=== PATIENT | male | born 1950 | race Caucasian/White ===

== ENCOUNTER 2021-08-05 09:33 | Inpatient (IN) | payer OTHER ==
[2021-08-05 10:40] LABS: BASO % 0.1 % (0-2.0); EOS % 0.2 % (0-4.5); HEMATOCRIT 42.5 % (35.4-49); HEMOGLOBIN 14.3 GM/dL (11.7-16.9); LYMPH % 8.8 % (8-40); MCHC 33.5 g/dl (32.0-35.9); MEAN CELL VOLUME 80.5 fl (80-96); MEAN PLT VOLUME 7.6 fl (7.5-11.1); MONO % 5.2 % (3.8-10.2); NEUT % 85.7 % (42.8-82.8); PLATELET COUNT 272 10^3/uL (134-434); RBC 5.28 M/mm3 (4.00-5.60); RDW 16.3 % (11.9-15.9); WHITE BLOOD COUNT 9.6 K/mm3 (4.0-10.0)
[2021-08-05 11:03] LABS: CHLORIDE 97 mmol/L (98-107); SODIUM 136 mmol/L (136-145)
[2021-08-05 11:04] LABS: MAGNESIUM 1.9 mg/dL (1.8-2.4)
[2021-08-05] MEDS: SODIUM CHLORIDE 1,000 ML IV SCH (11:04)
[2021-08-05 11:06] LABS: ALBUMIN 3.1 g/dl (3.4-5.0); CALCIUM 8.4 mg/dL (8.5-10.1); CO2 30 mmol/L (21-32); GLUCOSE,RANDOM 101 mg/dL (74-106)
[2021-08-05 11:07] LABS: BLOOD UREA NITROGEN 36.4 mg/dL (7-18)
[2021-08-05 11:08] LABS: PHOSPHOROUS 3.3 mg/dL (2.5-4.9)
[2021-08-05 11:09] LABS: SGPT/ALT 10 U/L (13-61)
[2021-08-05 11:10] LABS: CHOLESTEROL 118 mg/dL (50-200); CREATININE 2.2 mg/dL (0.55-1.3); SGOT/AST 18 U/L (15-37)
[2021-08-05 11:11] LABS: BILIRUBIN,TOTAL 1.4 mg/dL (0.2-1); LDL CHOLESTEROL (ONLY SJRH) 57 mg/dL (5-100); TOT PROT 6.9 g/dl (6.4-8.2); TRIGLYCERIDES 112 mg/dL (0-150)
[2021-08-05 11:12] LABS: ALK PHOS 131 U/L (45-117); HDL CHOLESTEROL 46 mg/dL (40-60)
[2021-08-05 11:18] LABS: ANION GAP 9 MMOL/L (8-16)
[2021-08-05] MEDS ORDERED: POTASSIUM CHLORIDE TABS 20 MEQ TABLET.ER (FP) PO ONE ×4 (11:25→19:38)
[2021-08-05] MEDS ORDERED: SODIUM CHLORIDE 0.9% 500 ML INFUS.BAG IV ONE (11:25)
[2021-08-05] MEDS: KCL 10 MEQ IVPB 10 MEQ/100 ML INFUS.BAG IVPB SCH ×3 (12:25→15:00)
[2021-08-05] MEDS ORDERED: KCL 10 MEQ IVPB 10 MEQ/100 ML INFUS.BAG IVPB ONE ×2 (12:28→14:36)
[2021-08-05 12:39] LABS: EPI CELLS 1 /uL (0-25.1); HYALINE CASTS 1 /uL (0-3.1); URINE APPEARANCE CLEAR; URINE BACTERIA 0 /uL (0-1359); URINE BILIRUBIN NEGATIVE (NEGATIVE); URINE COLOR YELLOW; URINE GLUCOSE (UA) NEGATIVE (NEGATIVE); URINE KETONE NEGATIVE (NEGATIVE); URINE LEUK ESTERASE NEGATIVE (NEGATIVE); URINE NITRITE NEGATIVE (NEGATIVE); URINE PROTEIN NEGATIVE (NEGATIVE); URINE RBC 71 /uL (0-23.9); URINE UROBILINOGEN 0.2 mg/dL (0.2-1.0); URINE WBC 5 /uL (0-25.8)
[2021-08-05] MEDS ORDERED: DEXTROSE 50%-WATER - 25 GM/50 ML VIAL IVPUSH ONE (16:36)
[2021-08-05] MEDS ORDERED: DEXTROSE 50%-WATER - 25 GM/50 ML VIAL ONE (16:37)
[2021-08-05] MEDS ORDERED: DEXTROSE 10%-WATER - 1,000 ML IV SCH (17:00)
[2021-08-05 18:40] LABS: CALCIUM 7.8 mg/dL (8.5-10.1)
[2021-08-05 18:41] LABS: ALBUMIN 2.6 g/dl (3.4-5.0); BLOOD UREA NITROGEN 34.8 mg/dL (7-18)
[2021-08-05 18:44] LABS: CREATININE 1.9 mg/dL (0.55-1.3)
[2021-08-05 18:45] LABS: BILIRUBIN,TOTAL 1.3 mg/dL (0.2-1); TOT PROT 5.7 g/dl (6.4-8.2)
[2021-08-05] MEDS: HEPARIN NA (PORCINE) 5,000 UNITS/ML 1ML VIAL SQ SCH (22:47)
[2021-08-05] MEDS: NYSTATIN 100,000 UNIT/GM TOPICAL CREAM 15 GM TUBE TP SCH (22:47)
[2021-08-05] MEDS: ATORVASTATIN CA 10 MG TABLET (FP) PO SCH (22:47)
[2021-08-06] MEDS: HEPARIN NA (PORCINE) 5,000 UNITS/ML 1ML VIAL SQ SCH ×2 (09:10→21:23)
[2021-08-06 09:16] LABS: BASO % 0.3 % (0-2.0); EOS % 0.9 % (0-4.5); HEMATOCRIT 36.5 % (35.4-49); HEMOGLOBIN 11.9 GM/dL (11.7-16.9); LYMPH % 13.2 % (8-40); MCH 26.6 pg (25.7-33.7); MCHC 32.6 g/dl (32.0-35.9); MEAN CELL VOLUME 81.5 fl (80-96); MEAN PLT VOLUME 8.3 fl (7.5-11.1); MONO % 9.8 % (3.8-10.2); NEUT % 75.8 % (42.8-82.8); PLATELET COUNT 192 10^3/uL (134-434); RBC 4.48 M/mm3 (4.00-5.60); RDW 16.4 % (11.9-15.9); WHITE BLOOD COUNT 5.5 K/mm3 (4.0-10.0)
[2021-08-06 09:58] LABS: CALCIUM 7.7 mg/dL (8.5-10.1)
[2021-08-06 09:59] LABS: ALBUMIN 2.1 g/dl (3.4-5.0); BLOOD UREA NITROGEN 32.1 mg/dL (7-18); MAGNESIUM 1.6 mg/dL (1.8-2.4)
[2021-08-06 10:01] LABS: CREATININE 1.7 mg/dL (0.55-1.3); URIC ACID 7.9 mg/dL (2.6-7.2)
[2021-08-06 10:02] LABS: TOT PROT 5.2 g/dl (6.4-8.2)
[2021-08-06 10:03] LABS: BILIRUBIN,TOTAL 0.9 mg/dL (0.2-1)
[2021-08-06] MEDS ORDERED: SODIUM CHLORIDE 0.45%/POT 20 MEQ/1,000 ML INFUS.BAG IV SCH (12:15)
[2021-08-06] MEDS ORDERED: POTASSIUM CHLORIDE TABS 20 MEQ TABLET.ER (FP) PO ONE (13:00)
[2021-08-06] MEDS: SODIUM CHLORIDE 1,000 ML IV SCH (13:02)
[2021-08-06] MEDS: NYSTATIN 100,000 UNIT/GM TOPICAL CREAM 15 GM TUBE TP SCH ×2 (14:08→21:24)
[2021-08-06] MEDS: ATORVASTATIN CA 10 MG TABLET (FP) PO SCH (21:23)
[2021-08-07] MEDS: TAMSULOSIN HCL 0.4 MG CAP PO SCH (08:22)
[2021-08-07 08:37] LABS: BASO % 0.3 % (0-2.0); EOS % 2.8 % (0-4.5); HEMATOCRIT 34.8 % (35.4-49); HEMOGLOBIN 11.5 GM/dL (11.7-16.9); LYMPH % 19.9 % (8-40); MCH 26.6 pg (25.7-33.7); MCHC 33.1 g/dl (32.0-35.9); MEAN CELL VOLUME 80.3 fl (80-96); MEAN PLT VOLUME 7.9 fl (7.5-11.1); MONO % 8.1 % (3.8-10.2); NEUT % 68.9 % (42.8-82.8); PLATELET COUNT 186 10^3/uL (134-434); RBC 4.34 M/mm3 (4.00-5.60); RDW 16.1 % (11.9-15.9); WHITE BLOOD COUNT 5.2 K/mm3 (4.0-10.0)
[2021-08-07 08:55] LABS: CHLORIDE 99 mmol/L (98-107); SODIUM 138 mmol/L (136-145)
[2021-08-07 09:04] LABS: ALBUMIN 2.3 g/dl (3.4-5.0); BLOOD UREA NITROGEN 22.2 mg/dL (7-18); PHOSPHOROUS 2.2 mg/dL (2.5-4.9)
[2021-08-07 09:05] LABS: GLUCOSE,RANDOM 107 mg/dL (74-106)
[2021-08-07 09:06] LABS: BILIRUBIN,TOTAL 0.9 mg/dL (0.2-1); TOT PROT 5.3 g/dl (6.4-8.2)
[2021-08-07 09:07] LABS: ALK PHOS 89 U/L (45-117); CO2 32 mmol/L (21-32); CREATININE 1.1 mg/dL (0.55-1.3)
[2021-08-07 09:08] LABS: SGOT/AST 18 U/L (15-37)
[2021-08-07 09:09] LABS: MAGNESIUM 1.4 mg/dL (1.8-2.4)
[2021-08-07] MEDS: HEPARIN NA (PORCINE) 5,000 UNITS/ML 1ML VIAL SQ SCH ×2 (09:10→21:26)
[2021-08-07] MEDS: NYSTATIN 100,000 UNIT/GM TOPICAL CREAM 15 GM TUBE TP SCH ×2 (09:10→21:26)
[2021-08-07 09:13] LABS: SGPT/ALT 12 U/L (13-61)
[2021-08-07 09:17] LABS: ANION GAP 7 MMOL/L (8-16)
[2021-08-07] MEDS ORDERED: POTASSIUM CHLORIDE TABS 10 MEQ TABLET.ER (FP) PO ONE (10:15)
[2021-08-07] MEDS: MAGNESIUM SULF 50% (8.12 MEQ/2 ML-1 GM VIAL) IVPB SCH ×2 (10:20→13:50)
[2021-08-07] MEDS: KCL 10 MEQ IVPB 10 MEQ/100 ML INFUS.BAG IVPB SCH ×2 (11:42→13:38)
[2021-08-07] MEDS ORDERED: MAGNESIUM SULF 50% (8.12 MEQ/2 ML-1 GM VIAL) IVPB SCH (13:45)
[2021-08-07] MEDS: ATORVASTATIN CA 10 MG TABLET (FP) PO SCH (21:26)
[2021-08-08 06:51] LABS: BASO % 0.3 % (0-2.0); HEMATOCRIT 35.2 % (35.4-49); HEMOGLOBIN 11.4 GM/dL (11.7-16.9); MCH 26.4 pg (25.7-33.7); MCHC 32.4 g/dl (32.0-35.9); MEAN CELL VOLUME 81.3 fl (80-96); MEAN PLT VOLUME 7.7 fl (7.5-11.1); MONO % 8.8 % (3.8-10.2); NEUT % 64.9 % (42.8-82.8); PLATELET COUNT 207 10^3/uL (134-434); RBC 4.33 M/mm3 (4.00-5.60); RDW 16.3 % (11.9-15.9); WHITE BLOOD COUNT 5.8 K/mm3 (4.0-10.0)
[2021-08-08 07:24] LABS: MAGNESIUM 1.7 mg/dL (1.8-2.4)
[2021-08-08 07:28] LABS: PHOSPHOROUS 2.6 mg/dL (2.5-4.9)
[2021-08-08] MEDS: TAMSULOSIN HCL 0.4 MG CAP PO SCH (09:01)
[2021-08-08] MEDS: HEPARIN NA (PORCINE) 5,000 UNITS/ML 1ML VIAL SQ SCH ×2 (09:01→21:03)
[2021-08-08] MEDS: NYSTATIN 100,000 UNIT/GM TOPICAL CREAM 15 GM TUBE TP SCH ×2 (09:01→21:03)
[2021-08-08 14:00] VITALS: BMI 24.7
[2021-08-08] MEDS ORDERED: MAGNESIUM SULF 50% (8.12 MEQ/2 ML-1 GM VIAL) IVPB ONE (15:18)
[2021-08-08 20:29] LABS: BLOOD UREA NITROGEN 17.7 mg/dL (7-18); CALCIUM 8.1 mg/dL (8.5-10.1)
[2021-08-08] MEDS: ATORVASTATIN CA 10 MG TABLET (FP) PO SCH (21:03)
[2021-08-09] MEDS: TAMSULOSIN HCL 0.4 MG CAP PO SCH (08:51)
[2021-08-09] MEDS: HEPARIN NA (PORCINE) 5,000 UNITS/ML 1ML VIAL SQ SCH ×2 (09:00→22:12)
[2021-08-09] MEDS: MULTIVITAMINS THER W-MINERALS COMBO TABLET (FP) PO SCH (09:00)
[2021-08-09] MEDS: NYSTATIN 100,000 UNIT/GM TOPICAL CREAM 15 GM TUBE TP SCH ×2 (09:00→22:15)
[2021-08-09 09:34] LABS: BASO % 0.2 % (0-2.0); EOS % 3.3 % (0-4.5); HEMATOCRIT 33.6 % (35.4-49); HEMOGLOBIN 11.2 GM/dL (11.7-16.9); LYMPH % 18.1 % (8-40); MCH 26.8 pg (25.7-33.7); MCHC 33.3 g/dl (32.0-35.9); MEAN CELL VOLUME 80.4 fl (80-96); MEAN PLT VOLUME 7.7 fl (7.5-11.1); MONO % 9.1 % (3.8-10.2); NEUT % 69.3 % (42.8-82.8); PLATELET COUNT 195 10^3/uL (134-434); RBC 4.18 M/mm3 (4.00-5.60); RDW 16.4 % (11.9-15.9); WHITE BLOOD COUNT 5.9 K/mm3 (4.0-10.0)
[2021-08-09 10:00] LABS: CALCIUM 8.3 mg/dL (8.5-10.1)
[2021-08-09 10:01] LABS: ALBUMIN 2.4 g/dl (3.4-5.0); BLOOD UREA NITROGEN 15.9 mg/dL (7-18); MAGNESIUM 1.8 mg/dL (1.8-2.4)
[2021-08-09 10:04] LABS: PHOSPHOROUS 3.3 mg/dL (2.5-4.9)
[2021-08-09 10:06] LABS: TOT PROT 5.3 g/dl (6.4-8.2)
[2021-08-09] MEDS: ZINC SULFATE 220 MG CAPSULE (FP) PO SCH (10:41)
[2021-08-09] MEDS: ASCORBIC ACID 500 MG TABLET (FP) PO SCH (10:41)
[2021-08-09] MEDS ORDERED: POTASSIUM CHLORIDE TABS 20 MEQ TABLET.ER (FP) PO ONE (13:09)
[2021-08-09] MEDS: ATORVASTATIN CA 10 MG TABLET (FP) PO SCH (22:12)
[2021-08-10] MEDS: MULTIVITAMINS THER W-MINERALS COMBO TABLET (FP) PO SCH (09:00)
[2021-08-10] MEDS: ASCORBIC ACID 500 MG TABLET (FP) PO SCH (09:00)
[2021-08-10] MEDS: NYSTATIN 100,000 UNIT/GM TOPICAL CREAM 15 GM TUBE TP SCH ×2 (09:00→21:38)
[2021-08-10] MEDS: HEPARIN NA (PORCINE) 5,000 UNITS/ML 1ML VIAL SQ SCH ×2 (09:00→21:37)
[2021-08-10] MEDS: ZINC SULFATE 220 MG CAPSULE (FP) PO SCH (09:00)
[2021-08-10] MEDS: TAMSULOSIN HCL 0.4 MG CAP PO SCH (09:00)
[2021-08-10 09:10] LABS: ALBUMIN 2.3 g/dl (3.4-5.0); BILIRUBIN,TOTAL 0.8 mg/dL (0.2-1); BLOOD UREA NITROGEN 25.2 mg/dL (7-18); CREATININE 1.2 mg/dL (0.55-1.3); TOT PROT 5.3 g/dl (6.4-8.2)
[2021-08-10] MEDS ORDERED: TAMSULOSIN HCL 0.4 MG CAP PO SCH (14:04)
[2021-08-10] MEDS ORDERED: TAMSULOSIN HCL 0.4 MG CAP PO ONE (14:15)
[2021-08-10] MEDS: ATORVASTATIN CA 10 MG TABLET (FP) PO SCH (21:37)
[2021-08-11 07:19] LABS: BASO % 0.3 % (0-2.0); EOS % 1.8 % (0-4.5); HEMATOCRIT 33.7 % (35.4-49); HEMOGLOBIN 11.2 GM/dL (11.7-16.9); LYMPH % 18.8 % (8-40); MCHC 33.2 g/dl (32.0-35.9); MEAN CELL VOLUME 81.3 fl (80-96); MEAN PLT VOLUME 7.9 fl (7.5-11.1); MONO % 9.3 % (3.8-10.2); NEUT % 69.8 % (42.8-82.8); PLATELET COUNT 198 10^3/uL (134-434); RBC 4.14 M/mm3 (4.00-5.60); RDW 16.5 % (11.9-15.9); WHITE BLOOD COUNT 6.4 K/mm3 (4.0-10.0)
[2021-08-11 07:41] LABS: ALBUMIN 2.3 g/dl (3.4-5.0); BLOOD UREA NITROGEN 25.5 mg/dL (7-18)
[2021-08-11 07:44] LABS: CREATININE 1.1 mg/dL (0.55-1.3)
[2021-08-11 07:45] LABS: TOT PROT 5.4 g/dl (6.4-8.2)
[2021-08-11 07:46] LABS: BILIRUBIN,TOTAL 0.8 mg/dL (0.2-1)
[2021-08-11] MEDS: MULTIVITAMINS THER W-MINERALS COMBO TABLET (FP) PO SCH (11:10)
[2021-08-11] MEDS: ASCORBIC ACID 500 MG TABLET (FP) PO SCH (11:10)
[2021-08-11] MEDS: ZINC SULFATE 220 MG CAPSULE (FP) PO SCH (11:11)
[2021-08-11] MEDS: HEPARIN NA (PORCINE) 5,000 UNITS/ML 1ML VIAL SQ SCH (11:11)
[2021-08-11] MEDS: NYSTATIN 100,000 UNIT/GM TOPICAL CREAM 15 GM TUBE TP SCH (11:11)
[2021-08-11] MEDS ORDERED: POLYETHYLENE GLYCOL (HEALTHYLAX) 3350 17 GM PACKET PO SCH (14:00)
[2021-08-11 15:40] VITALS: BP 106/55; PULSE 70; TEMP 100.7
[2021-08-12 12:11] LABS: SARS-CoV-2 NAA Not Detected (Not Detected)
== END 2021-08-11 13:15 | DRG 683 ==
LOC: JER 09:33 → JERBED 11:27 → J4S 22:08 → J4W 08-10 17:32
PROVIDERS: ADMIT Family Medicine; ATTEND Family Medicine
DX: N17.9 Acute kidney failure, unspecified (principal); G45.9 Transient cerebral ischemic attack, unspecified; E11.649 Type 2 diabetes mellitus with hypoglycemia without coma; E11.22 Type 2 diabetes mellitus with diabetic chronic kidney disease; E78.5 Hyperlipidemia, unspecified; M62.81 Muscle weakness (generalized); N18.2 Chronic kidney disease, stage 2 (mild); E88.09 Other disorders of plasma-protein metabolism, not elsewhere classified; R47.81 Slurred speech; E87.6 Hypokalemia; N13.30 Unspecified hydronephrosis; I12.9 Hypertensive chronic kidney disease with stage 1 through stage 4 chronic kidney disease, or unspecified chronic kidney disease; N28.1 Cyst of kidney, acquired; N40.1 Benign prostatic hyperplasia with lower urinary tract symptoms; R31.0 Gross hematuria; R33.9 Retention of urine, unspecified; M21.372 Foot drop, left foot
CPT/HCPCS: 36415; 70450-TC; 70551-TC; 71045-TC-FY; 76775-TC; 76856-TC; 80048; 80053; 80061; 80299; 81003; 82010; 82570; 82607; 82962; 83036; 83525; 83735; 84100; 84156; 84300; 84436; 84443; 84484; 84550; 85025; 87086; 93005; 93010; 93306-TC; 93880-TC; 97162-GP; 99285-25; C9803-CS; J1644; J3480; U0003; U0005

== ENCOUNTER 2022-05-08 04:26 | Day surgery (SDC) | payer OTHER ==
[2022-05-06 11:17] VITALS: BMI 25.4
[2022-05-08] MEDS ORDERED: MIDAZOLAM HCL 2 MG/2 ML SINGLE DOSE VIAL ONE (12:28)
[2022-05-08] MEDS ORDERED: PROPOFOL 20 ML ONE (12:28)
[2022-05-08] MEDS ORDERED: SODIUM CHLORIDE 0.9% P/F 10 ML VIAL IJ ONE (12:30)
[2022-05-08] MEDS ORDERED: ceFAZolin SODIUM 1 GM VIAL ONE (12:30)
[2022-05-08] MEDS ORDERED: LIDOCAINE HCL/PF 2% SDV 5ML VIAL ONE (12:30)
[2022-05-08] MEDS ORDERED: GLYCOPYRROLATE 0.2 MG/1 ML VIAL ONE (12:30)
[2022-05-08] MEDS ORDERED: ceFAZolin SODIUM 1 GM VIAL IVPB ONE (12:45)
[2022-05-08] MEDS ORDERED: ONDANSETRON 4 MG/2 ML VIAL IVPUSH PRN (14:27)
[2022-05-08] MEDS ORDERED: PROMETHAZINE HCL 25 MG/1 ML VIAL IVPUSH PRN (14:27)
[2022-05-08] MEDS ORDERED: LACTATED RINGERS SOLUTION 1,000 ML IV SCH (14:30)
[2022-05-08 15:30] VITALS: RESP 18
[2022-05-08 15:36] VITALS: BP 104/58; PULSE 82; TEMP 97.2
== END 2022-05-08 16:04 ==
LOC: JASU-SURG 04:26
PROVIDERS: ATTEND Urology
PROC: 0T9B00Z Drainage of Bladder with Drainage Device, Open Approach (ICD-10-PCS; principal; 2022-05-08 12:00)
DX: N31.9 Neuromuscular dysfunction of bladder, unspecified (principal); N36.8 Other specified disorders of urethra; N30.90 Cystitis, unspecified without hematuria
CPT/HCPCS: 82962; 94760

== ENCOUNTER 2023-10-25 16:17 | Inpatient (IN) | payer OTHER ==
[2023-10-25 17:36] LABS: BASO % 0.3 % (0-2.0); HEMATOCRIT 38.5 % (35.4-49); HEMOGLOBIN 12.5 GM/dL (11.7-16.9); LYMPH % 13.3 % (8-40); MCH 27.1 pg (25.7-33.7); MCHC 32.6 g/dl (32.0-35.9); MEAN CELL VOLUME 83.1 fl (80-96); MEAN PLT VOLUME 7.6 fl (7.5-11.1); MONO % 10.1 % (3.8-10.2); NEUT % 75.3 % (42.8-82.8); PLATELET COUNT 329 10^3/uL (134-434); RBC 4.63 M/mm3 (4.00-5.60); WHITE BLOOD COUNT 11.4 K/mm3 (4.0-10.0)
[2023-10-25] MEDS: SODIUM CHLORIDE 1,000 ML IV STA (17:42)
[2023-10-25 18:08] LABS: LACTIC ACID 2.1 mmol/L (0.4-2.0)
[2023-10-25 18:15] LABS: ALBUMIN 2.9 g/dl (3.4-5.0); BLOOD UREA NITROGEN 20.7 mg/dL (7-18); CALCIUM 8.4 mg/dL (8.5-10.1); MAGNESIUM 1.4 mg/dL (1.8-2.4)
[2023-10-25 18:18] LABS: CREATININE 0.8 mg/dL (0.55-1.3)
[2023-10-25 18:20] LABS: BILIRUBIN,TOTAL 0.9 mg/dL (0.2-1); TOT PROT 6.7 g/dl (6.4-8.2)
[2023-10-25] MEDS ORDERED: MAGNESIUM 1GM/D5W - 1 GM/100 ML IVPB IVPB ONE (18:35)
[2023-10-25] MEDS: MAGNESIUM 1GM/D5W - 1 GM/100 ML IVPB IVPB ONE (18:50)
[2023-10-25] MEDS ORDERED: AMPICILLIN NA/SULBACTAM NA 3 GM/100 ML BAG IVPB ONE (19:39)
[2023-10-25] MEDS: AMPICILLIN NA/SULBACTAM NA 3 GM in SODIUM CHLORIDE 100 ML IVPB ONE (19:46)
[2023-10-26] MEDS ORDERED: ACETAMINOPHEN 1000 MG/100 ML BAG IVPB PRN (01:27)
[2023-10-26] MEDS ORDERED: AMPICILLIN NA/SULBACTAM NA 3 GM/100 ML BAG IVPB ONE (02:22)
[2023-10-26] MEDS: AMPICILLIN NA/SULBACTAM NA 3 GM in SODIUM CHLORIDE 100 ML IVPB SCH (02:30)
[2023-10-26] MEDS ORDERED: MAGNESIUM 1GM/D5W - 1 GM/100 ML IVPB IVPB ONE (02:37)
[2023-10-26] MEDS: MAGNESIUM 1GM/D5W - 1 GM/100 ML IVPB IVPB ONE (02:38)
[2023-10-26 04:13] VITALS: BMI 25.6
[2023-10-26] MEDS: INSULIN ASPART SLIDING SCALE (NOVOLOG) 1 VIAL SQ SCH (06:10)
[2023-10-26 09:51] LABS: BASO % 0.4 % (0-2.0); EOS % 1.1 % (0-4.5); HEMATOCRIT 37.1 % (35.4-49); HEMOGLOBIN 12.1 GM/dL (11.7-16.9); LYMPH % 16.3 % (8-40); MCH 27.1 pg (25.7-33.7); MCHC 32.5 g/dl (32.0-35.9); MEAN CELL VOLUME 83.3 fl (80-96); MONO % 10.9 % (3.8-10.2); NEUT % 71.3 % (42.8-82.8); PLATELET COUNT 285 10^3/uL (134-434); RBC 4.45 M/mm3 (4.00-5.60); RDW 15.9 % (11.9-15.9); WHITE BLOOD COUNT 9.1 K/mm3 (4.0-10.0)
[2023-10-26 09:59] LABS: POTASSIUM 3.4 mmol/L (3.5-5.1)
[2023-10-26 10:04] LABS: BLOOD UREA NITROGEN 16.5 mg/dL (7-18)
[2023-10-26 10:07] LABS: CALCIUM 8.4 mg/dL (8.5-10.1); CREATININE 0.7 mg/dL (0.55-1.3); MAGNESIUM 1.8 mg/dL (1.8-2.4); PHOSPHOROUS 2.5 mg/dL (2.5-4.9)
[2023-10-26] MEDS: AMMONIUM LACTATE 12% LOTION 225 GM BOTTLE TP SCH (10:16)
[2023-10-26] MEDS: ASCORBIC ACID 500 MG TABLET (FP) PO SCH (10:17)
[2023-10-26] MEDS: metFORMIN HCL 500 MG TABLET (FP) PO SCH (10:17)
[2023-10-26] MEDS: VANCOMYCIN/WATER FOR INJ (PEG) 1,000 MG/200 ML BAG IVPB SCH (15:49)
[2023-10-26] MEDS: ATORVASTATIN CA 10 MG TABLET (FP) PO SCH (21:36)
[2023-10-27] MEDS ORDERED: ACETAMINOPHEN 325 MG TABLET (FP) PO PRN (01:23)
[2023-10-27] MEDS: POTASSIUM CHLORIDE ORAL LIQUID 20 MEQ/15 ML PO ONE (08:53)
[2023-10-27 08:58] LABS: INR 1.1 (0.83-1.09); PROTHROMBIN TIME (PATIENT) 12.4 SEC (9.7-13.0)
[2023-10-27 08:59] LABS: ACTIVATED PTT 34.5 SECONDS (25.2-36.5)
[2023-10-27] MEDS: AMMONIUM LACTATE 12% LOTION 225 GM BOTTLE TP SCH (13:42)
[2023-10-28] MEDS: AMOX TR/POT CLAV 875MG/125MG TABLETS (FP) PO SCH (17:32)
[2023-10-28 22:33] VITALS: RESP 18
[2023-10-29 09:15] VITALS: BP 121/80; PULSE 82; TEMP 98.1
== END 2023-10-29 11:46 | DRG 603 ==
LOC: JER 16:17 → JERBED 10-26 01:28 → J7W 10-26 03:18 → OBSVTOIN 10-26 12:34
PROVIDERS: ADMIT Internal Medicine; ATTEND Family Medicine
PROC: 0W983ZZ Drainage of Chest Wall, Percutaneous Approach (ICD-10-PCS; principal; 2023-10-25)
DX: L02.213 Cutaneous abscess of chest wall (principal); L97.909 Non-pressure chronic ulcer of unspecified part of unspecified lower leg with unspecified severity; E11.22 Type 2 diabetes mellitus with diabetic chronic kidney disease; L03.313 Cellulitis of chest wall; E78.5 Hyperlipidemia, unspecified; E83.42 Hypomagnesemia; K40.90 Unilateral inguinal hernia, without obstruction or gangrene, not specified as recurrent; N18.9 Chronic kidney disease, unspecified; I12.9 Hypertensive chronic kidney disease with stage 1 through stage 4 chronic kidney disease, or unspecified chronic kidney disease; N50.89 Other specified disorders of the male genital organs; N31.9 Neuromuscular dysfunction of bladder, unspecified; N40.0 Benign prostatic hyperplasia without lower urinary tract symptoms
CPT/HCPCS: 36415; 71045-TC-FY; 74177-TC; 80048; 80053; 82962; 83036; 83540; 83550; 83605; 83690; 83735; 84100; 85025; 85610; 85730; 87070; 87205; 87635; 93005; 93010; 97162-GP; 99285-25; G0378; Q9967